=== PATIENT | male | born 1995 | race Caucasian/White ===

== ENCOUNTER 2017-05-06 18:20 | Emergency (ER) | payer BC, OTHER ==
[~2017-05-06] VITALS: Ht 177.8 cm; Wt 88.8 kg
[~2017-05-06 18:20] MED LIST: /ACETCOD3T; VITAMIN
[2017-05-06] MEDS ORDERED: NAPR500T PO (20:17)
[2017-05-06 20:20] VITALS: BP 130/68
--- NOTE | 2017-05-06 21:51 | REP ---
HISTORY: Pain after trauma. COMPARISON: None. FINDINGS: No acute fracture or destructive osseous lesion. Signed by Danny Gusman DO 05/07/2017 11:28 A
== END 2017-05-06 20:27 | disposition home or self-care (01) ==
LOC: M ED 18:20
DX: S63.522A Sprain of radiocarpal joint of left wrist, initial encounter (principal); W19.XXXA Unspecified fall, initial encounter; Y92.89 Other specified places as the place of occurrence of the external cause; Y93.89 Activity, other specified; Y99.0 Civilian activity done for income or pay